=== PATIENT | male | born 1965 | race Two or more races ===

== ENCOUNTER 2024-03-30 13:34 | Outpatient (RCR) | payer OTHER, MEDICAID, SELFPAY ==
--- NOTE | 2024-03-30 14:33 | CTCFLWUP_ITS ---
[facility] [address] [place], [place] [address] FOLLOW-UP NOTE Date: 03/30/2024 MR#: [id number] Name: KAVON DOMINGUEZ : 1965 Dx: C20 Malignant neoplasm of rectum Stage IIIa ([id number]) rectal CA with per rectal lymphadenopathy neoadjuvant FOLFIRI followed by chemor adiation completed 02/15/2021. Status post laparoscopic APR resection with colostomy bag permanent residual 1.5 1.3 x 0.3 cm ypT2N0. Additional 3 months of modified FOLFOX 6 in adjuvant setting 05/27/2021 through 08/26/2021. 11/02/2023 labs CEA 3.3 10/28/2023 CT chest abdomen pelvis no interval met disease. Having intermittent pelvic pain likely related to prior surgeries needing occasional hydrocodone 5 ta jason only 1 or 2 a day max.. 120 tabs renewed. Cures website checked side effects discussed. Patient will be seeing his new medical oncologist Dr. Cerna next month. I will be seeing him in 3 months regarding his pain management. Electronically signed by: Enzo Carlisle M.D. 03/30/2024 2:30 PM
== END 2024-04-26 23:59 | disposition home or self-care (01) ==
LOC: SCTC 13:34
PROVIDERS: PCP Internal Medicine; Referring Provider Internal Medicine; Visit Provider Radiology Therapeutic Radiology
DX: C20 Malignant neoplasm of rectum (principal); Z92.21 Personal history of antineoplastic chemotherapy; Z92.3 Personal history of irradiation; Z93.3 Colostomy status
CPT/HCPCS: 99213; G0463

== ENCOUNTER 2024-05-05 10:01 | Outpatient (RCR) | payer OTHER, MEDICAID, SELFPAY ==
[2024-05-04 16:13] LABS: Basophils % (Auto) 1 % (0-2.5); Eosinophils # (Auto) 0.2 Thou/mm3 (0.0-0.5); Eosinophils % (Auto) 3 % (0-10); Hematocrit 34.4 % (41.0-53.0); Hemoglobin 12.4 g/dL (13.5-16.0); Immature Granulocytes % (Auto) 0 % (0-0); Immature Granulocytes Auto 0.02 Thou/mm3 (0.00-0.00); Lymphocytes # (Auto) 1.2 Thou/mm3 (1.0-4.8); Lymphocytes % (Auto) 15 % (10-50); Mean Corpuscular Hemoglobin 29.1 pg (25.0-35.0); Mean Corpuscular Volume 81 fL (80-100); Monocytes # (Auto) 0.8 Thou/mm3 (0.0-0.8); Monocytes % (Auto) 10 % (0-12); Neutrophils # (Auto) 5.6 Thou/mm3 (1.8-7.7); Neutrophils % (Auto) 71 % (37-80); Nucleated Red Blood Cell % 0 /100 WBC (0); Platelet Count 275 Thou/mm3 (140-440); RDW Standard Deviation 37.2 fL (35.1-43.9); Red Blood Count 4.26 Miln/mm3 (4.50-5.90)
[2024-05-04 16:37] LABS: Alanine Aminotransferase 34 U/L (10-49); Albumin, Serum 4.8 gm/dL (3.5-5.0); Albumin/Globulin Ratio 1.8 (1.2-2.2); Alkaline Phosphatase 87 U/L (46-116); Anion Gap 11 (7-16); Aspartate Amino Transferase 27 U/L (0-34); BUN/Creatinine Ratio 15 Ratio (12-20); Bilirubin,Total 0.6 mg/dL (0.3-1.2); Blood Urea Nitrogen 18 mg/dL (9-23); Calcium 9.4 mg/dL (8.3-10.6); Calcium (Corrected) 9.4 mg/dL (8.5-10.1); Carbon Dioxide 25.4 mMol/L (20.0-31.0); Chloride 102 mMol/L (98-107); Creatinine (Component) 1.2 mg/dL (0.6-1.3); Globulin 2.6 gm/dL (2.3-3.5); Glucose 148 mg/dL (74-106); Osmolality,Calculated 280 (275-295); Potassium 3.4 mMol/L (3.4-5.1); Sodium 138 mMol/L (136-145); Total Protein 7.4 gm/dL (5.7-8.2); eGFR > 60 See Note
[2024-05-04 16:39] LABS: Carcinoembryonic Antigen 3.2 ng/mL (0.0-5.0)
--- NOTE | 2024-05-08 20:00 | CTCFLWUP_ITS ---
Patient: LIVAN DOMINGUEZ : 1965 Page 9 of 10 FOLLOW UP NOTE DATE OF SERVICE: 05/05/2024 NAME: LIVAN DOMINGUEZ ACCOUNT: [id number] : 1965 AGE: 58 INTERVAL HISTORY: ONCOLOGY HISTORY: DIAGNOSIS: Malignant neoplasm of rectum [ICD10] C20 DATE OF DIAGNOSIS: Probably stage IIIa (T2, N 1, M0) well-differentiated rectal adenocarcinoma with perirectal lymphad enopathy. S/p biopsy on 07/04/2020. Neoadjuvant FOLFIRI followed by chemoradiation completed on 02/15/2021. S/p laparoscopic abdominoperineal resection with colostomy bag placement?residual 1.5 x 1.3 x 0.3 cm (YPT2N0) moderately differentiated adenocarcinoma was noted. Status post 3 months of modified FOLFOX 6 in the adjuvant setting (05/27/2021 - 08/26/2021) STAGE/TNM: Probably stage IIIa (T2, N 1, M0) well-differentiated rectal adenocarcinoma with perirectal lymph adenopathy TREATMENT HISTORY: Care?Plan Start?Date Cycle Day Intent modified?FOLFOXIRI?philomena?rectal?FRANCO?1 10/02/2020 1 14 Curative?(primary) modified?FOLFOX6?SHE?rectal?FRANCO?3 05/27/2021 1 14 Curative?(adjuvant) VENOfer?200mg?IV?wkly?for?10?weeks 05/27/2021 1 70 Palliative HISTORY OF PRESENT ILLNESS: Livan Dominguez is a 58-year-old ENG speaking male with history of diabetes and hypertension booth s been having intermittent rectal bleeding since January 2020. 07/02/2020: Patient was seen in the emergency room because of worsening rectal bleeding and was admitte d to the hospital. 07/04/2020: Patient had colonoscopy done by Dr. Soto. 07/02/2020: CT scan of the abdomen and pelvis with IV contrast? 08/01/2020: CT scan of the chest with IV contrast? 08/15/2020: MRI of the pelvis with and without contrast? 09/07/2020: Echocardiogram? 09/18/2020: Patient was seen by Dr. Alvaro Encarnacion of [facility]. 10/02/2020?12/12/2020: Patient had 6 cycles of FOLFIRINOX chemotherapy. 01/14/2021?02/15/2021: Patient had chemoradiation with capecitabine. 02/21/2021: Patient has seen colorectal surgeon Dr. Alvaro Encarnacion at [facility]. 04/03/2021: Mr. Dominguez had laparoscopic abdominal perineal resection with umbilical hernia repair. 05/27/2021 - 08/26/2021: Patient received 3 months of modified FOLFOX 6 (6 doses) in the adjuvant settin g. 08/23/2021: CEA 3.3. 10/23/2021: CT scan of the chest abdomen and pelvis with IV contrast? 01/15/2022: CEA 2.6. 02/14/2022: PET/CT scan 11/17/2023: CT scan of the chest abdomen pelvis with IV contrast 11/12/2023: CEA 3.3. OTHER MEDICAL HISTORY/CONDITIONS: FAMILY HISTORY: SOCIAL HISTORY: MEDICATIONS: 1. amlodipine - 10 mg 1 tab Daily 2. Farxiga - 5 mg 1 tab Daily 3. Flomax - 0.5 mg Daily 4. hydrocodone-acetaminophen - 5-325 mg 1 tab q6 5. Lantus Solostar - 100 unit/mL (3 mL) 22 Unit Daily 6. lisinopril - 40 mg 1 tab Daily 7. metFORMIN - 1,000 mg 1 tab Daily 8. metoprolol succinate - 25 mg 1 tab Daily 9. Vascepa - 1 gram 2 Capsule Twice a Day Medications Last Reconciled by Dorothea De La Cruz MA on 05/05/2024 ALLERGIES: No Known Drug Allergies REVIEW OF SYSTEMS: A complete 14-point review of systems was performed and is negative except as noted in interval histo ry. PHYSICAL EXAMINATION: VITAL SIGNS: B/P?191/98, Oxygen?Saturation?97% Weight?250?lbs (Change?since?05/04/24:?2.4?lbs) PAIN: 0 - No pain ECOG Performance Status: 0 - Asymptomatic and fully active GENERAL APPEARANCE: Appears well, in no apparent distress, appropriately interactive. HEENT: Normocephalic, no temporal wasting, normal conjunctiva, no scleral icterus, normal hearing, li ps without lesions, neck normal range of motion. CARDIOVASCULAR: Not assessed. PULMONARY: Normal respiratory effort, no respiratory distress or use of accessory muscles, speaking i n full sentences, no tachypnea. EXTREMITIES: No pedal edema or cyanosis. SKIN: Normal skin appearance. NEUROLOGIC: Alert and oriented x4. PSHYCHIATRIC: Appropriate affect, mood normal, behavior normal, intact thought and speech. LABORATORY DATA: I have personally reviewed and interpreted each of the patient?s relevant lab tests, abnormal finding s are below: Date 05/04/24 ??WHITE?BLOOD?COUNT?(Thou/mm3) 8.0 ??RED?BLOOD?COUNT?(Miln/mm3) 4.26?L ??HEMOGLOBIN?(gm/dl) 12.4?L ??HEMATOCRIT?(%) 34.4?L ??PLATELET?COUNT?(Thou/mm3) 275 ??NEUTROPHILS?%,?AUTO?(%) 71 ??LYMPH?%,?AUTO?(%) 15 ??NEUTROPHILS,?AUTO?(Thou/mm3) 5.6 ASSESSMENT/PLAN: 1. Probably stage IIIa (T2, N 1, M0) well-differentiated rectal adenocarcinoma with perirectal lympha denopathy. S/p biopsy on 07/04/2020. The patient has seen colorectal surgeon Alvaro Encarnacion on 02/21/2021 who is planning on doing surgery o n April 03, 2021. S/p laparoscopic abdominoperineal resection on 04/03/2021. Surgical pathology specimen showed a resid ual 1.5 cm tumor (YPT2N0). S/p 3 months of adjuvant modified FOLFOX 6 completed on 08/26/2021. Mr. Dominguez has completed chemoradiation on 02/15/2021 with capecitabine. Mr. Dominguez completed 6 cycles of neoadjuvant FOLF[address]. CT scan of the chest abdomen pelvis done on 11/17/2023 is negative for recurrence. CEA is 3.3. No clinical or radiographic evidence of recurrence of his rectal cancer. I will see him back in clinic in 6 months with CBC, CMP as well as CEA done prior to the visit. ORDERS: Cbc,cmp,cea RETURN TO CLINIC: 6 months BILLING AND COMPLIANCE: I reviewed external records from providers outside my specialty as summarized above. I spent a total of 50 minutes on this patient?s care on the day of their visit excluding time spent related to any bi lled procedures. This time includes time spent with the patient as well as time spent documenting in the medical record, reviewing patients records and tests, obtaining history, placing orders, communi cating with other healthcare professionals, counseling the patient, family or caregiver, and/or care coordination for the diagnoses above. Electronically Signed by: {Object.Sanct_ID*[email or web address]@M}, {Object.Sanct_ID*PnP.Suffix@U} D: {Object.Sanct_Date} T: {Object.Sanct_Time} CC: Enzo?Maylin,? PCP: Daquan Da Silva Referring: Daquan Da Silva This document was completed utilizing speech recognition software. Grammatical errors, random word in sertions, pronoun errors, and incomplete sentences are an occasional consequence of this system due t o software limitations, ambient noise, and hardware issues. Any formal questions or concerns about th e content, text or information contained within the body of this dictation should be directly address ed to the provider for clarification.
== END 2024-05-27 23:59 | disposition home or self-care (01) ==
LOC: SCTC 10:01
PROVIDERS: PCP Internal Medicine; Referring Provider Internal Medicine; Visit Provider Internal Medicine Hematology & Oncology
DX: Z08 Encounter for follow-up examination after completed treatment for malignant neoplasm (principal); Z85.038 Personal history of other malignant neoplasm of large intestine; Z92.3 Personal history of irradiation; Z92.21 Personal history of antineoplastic chemotherapy; Z90.49 Acquired absence of other specified parts of digestive tract
CPT/HCPCS: 36591; 80053; 82378; 85025; 99212; J1642; G0463

== ENCOUNTER → 2024-07-07 | Outpatient (CLI) | payer OTHER, MEDICAID, SELFPAY ==
[2024-07-07 11:00] LABS: Basophils % (Auto) 1 % (0-2.5); Eosinophils # (Auto) 0.3 Thou/mm3 (0.0-0.5); Eosinophils % (Auto) 4 % (0-10); Hematocrit 35.9 % (41.0-53.0); Hemoglobin 12.3 g/dL (13.5-16.0); Immature Granulocytes % (Auto) 0 % (0-0); Immature Granulocytes Auto 0.02 Thou/mm3 (0.00-0.00); Lymphocytes % (Auto) 16 % (10-50); Mean Corpuscular HGB Conc 34.3 g/dl (31.0-37.0); Mean Corpuscular Volume 85 fL (80-100); Monocytes # (Auto) 0.7 Thou/mm3 (0.0-0.8); Monocytes % (Auto) 11 % (0-12); Neutrophils # (Auto) 4.4 Thou/mm3 (1.8-7.7); Neutrophils % (Auto) 68 % (37-80); Nucleated Red Blood Cell % 0 /100 WBC (0); Platelet Count 267 Thou/mm3 (140-440); RDW Standard Deviation 40.5 fL (35.1-43.9); Red Blood Count 4.24 Miln/mm3 (4.50-5.90); White Blood Count 6.5 Thou/mm3 (3.8-10.6)
[2024-07-07 11:33] LABS: Alanine Aminotransferase 27 U/L (10-49); Albumin, Serum 4.1 gm/dL (3.5-5.0); Albumin/Globulin Ratio 1.6 (1.2-2.2); Alkaline Phosphatase 83 U/L (46-116); Anion Gap 10 (7-16); Aspartate Amino Transferase 26 U/L (0-34); BUN/Creatinine Ratio 17 Ratio (12-20); Bilirubin,Total 0.9 mg/dL (0.3-1.2); Blood Urea Nitrogen 24 mg/dL (9-23); Calcium 10.3 mg/dL (8.3-10.6); Calcium (Corrected) 10.3 mg/dL (8.5-10.1); Carbon Dioxide 26.8 mMol/L (20.0-31.0); Chloride 102 mMol/L (98-107); Creatinine (Component) 1.4 mg/dL (0.6-1.3); Globulin 2.5 gm/dL (2.3-3.5); Glucose 204 mg/dL (74-106); Osmolality,Calculated 287 (275-295); Potassium 4.2 mMol/L (3.4-5.1); Sodium 139 mMol/L (136-145); Total Protein 6.6 gm/dL (5.7-8.2); eGFR 58 See Note
[2024-07-07 15:30] LABS: Carcinoembryonic Antigen 2.9 ng/mL (0.0-5.0)
== END | disposition home or self-care (01) ==
LOC: SCTO 09:11
PROVIDERS: PCP Internal Medicine; Referring Provider Internal Medicine Hematology & Oncology; Visit Provider Internal Medicine Hematology & Oncology
DX: C20 Malignant neoplasm of rectum (principal)
CPT/HCPCS: 36415; 80053; 82378; 85025

== ENCOUNTER → 2024-07-08 | Outpatient (CLI) | payer OTHER, MEDICAID, SELFPAY ==
--- NOTE | 2024-07-08 15:00 | XR_ITS ---
Examination: CT chest with intravenous contrast CT abdomen with intravenous contrast CT pelvis with intravenous contrast 2-D coronal and sagittal reconstructions Time of exam: July 08, 2024 at [address] chest abdomen pelvis November 17, 2023, CT abdomen pelvis July 02, 2022, PET/CT scan February 14, 2022 Indications: Diagnosis malignant neoplasm rectum post surgery and colostomy, restaging CTDI: vol (mGy) : 25 DLP: (mGycm): 1294 Technique: Multiple axial images of the chest, abdomen and pelvis with intravenous contrast, 3.0 mm slice thickness. Images obtained post intravenous injection Isovue 370 60 cc. 2-D sagittal and coronal reconstructions. Low dose protocols were performed. One or more of the following dose reduction techniques were used; automated exposure control, adjustment of the mA and/or KV according to patient size, use of iterative reconstruction technique. Findings: No thoracic aortic aneurysm dilatation No pulmonary artery filling defects. No paratracheal tracheobronchial or bronchopulmonary adenopathy. No pneumonia, pulmonary edema, pleural disease or pulmonary nodules No liver or splenic lesions No gallstones Left colostomy Normal appendix Aorta normal size No interval abdominal or pelvic lymphadenopathy Stable presacral density compared with November 17, 2023 Urinary bladder intact Small fat-containing inguinal hernias Moderate osteopenia Impression: No interval metastatic disease
== END | disposition home or self-care (01) ==
LOC: CCTX 14:38
PROVIDERS: PCP Family Medicine; Referring Provider Internal Medicine Hematology & Oncology; Visit Provider Internal Medicine Hematology & Oncology
DX: C20 Malignant neoplasm of rectum (principal)
CPT/HCPCS: 71260; 74177; A4649; Q9967

== ENCOUNTER 2024-07-20 14:07 | Outpatient (RCR) | payer OTHER, MEDICAID, SELFPAY ==
--- NOTE | 2024-07-20 14:56 | CTCFLWUP_ITS ---
Patient: LIVAN DOMINGUEZ : 1965 Page 2 of 2 FOLLOW UP NOTE DATE OF SERVICE: 07/20/2024 NAME: LIVAN DOMINGUEZ ACCOUNT: [id number] : 1965 AGE: 59 INTERVAL HISTORY: No new complains ONCOLOGY HISTORY:?[facility] Oncology Hx? DIAGNOSIS: Malignant neoplasm of rectum [ICD10] C20 DATE OF DIAGNOSIS: Probably stage IIIa (T2, N 1, M0) well-differentiated rectal adenocarcinoma with perirectal lymphadenopathy. S/p biopsy on 07/04/2020. Neoadjuvant FOLFIRI followed by chemoradiation completed on 02/15/2021. S/p laparoscopic abdominoperineal resection with colostomy bag placement?residual 1.5 x 1.3 x 0.3 cm (YPT2N0) moderately differentiated adenocarcinoma was noted. Status post 3 months of modified FOLFOX 6 in the adjuvant setting (05/27/2021 - 08/26/2021) STAGE/TNM: Probably stage IIIa (T2, N 1, M0) well-differentiated rectal adenocarcinoma with perirectal lymphadenopathy TREATMENT HISTORY: Care?Plan Start?Date Cycle Day Intent modified?FOLFOXIRI?philomena?rectal?FRANCO?1 10/02/2020 1 14 Curative?(primary) modified?FOLFOX6?SHE?rectal?FRANCO?3 05/27/2021 1 14 Curative?(adjuvant) VENOfer?200mg?IV?wkly?for?10?weeks 05/27/2021 1 70 Palliative HISTORY OF PRESENT ILLNESS: Livan Dominguez is a 59-year-old ENG speaking male with history of diabetes and hypertension has been having intermittent rectal bleeding since January 2020. 07/02/2020: Patient was seen in the emergency room because of worsening rectal bleeding and was admitted to the hospital. 07/04/2020: Patient had colonoscopy done by Dr. Soto. 07/02/2020: CT scan of the abdomen and pelvis with IV contrast? 08/01/2020: CT scan of the chest with IV contrast? 08/15/2020: MRI of the pelvis with and without contrast? 09/07/2020: Echocardiogram? 09/18/2020: Patient was seen by Dr. Alvaro Encarnacion of [facility]. 10/02/2020?12/12/2020: Patient had 6 cycles of FOLFIRINOX chemotherapy. 01/14/2021?02/15/2021: Patient had chemoradiation with capecitabine. 02/21/2021: Patient has seen colorectal surgeon Dr. Alvaro Encarnacion at [facility]. 04/03/2021: Mr. Dominguez had laparoscopic abdominal perineal resection with umbilical hernia repair. 05/27/2021 - 08/26/2021: Patient received 3 months of modified FOLFOX 6 (6 doses) in the adjuvant setting. 08/23/2021: CEA 3.3. 10/23/2021: CT scan of the chest abdomen and pelvis with IV contrast? 01/15/2022: CEA 2.6. 02/14/2022: PET/CT scan 11/17/2023: CT scan of the chest abdomen pelvis with IV contrast 11/12/2023: CEA 3.3. OTHER MEDICAL HISTORY/CONDITIONS: FAMILY HISTORY: ?Clone Family Hx? SOCIAL HISTORY: MEDICATIONS: 1. amlodipine - 10 mg 1 tab Daily 2. Farxiga - 5 mg 1 tab Daily 3. Flomax - 0.5 mg Daily 4. hydrocodone-acetaminophen - 5-325 mg 1 tab q6 5. Lantus Solostar - 100 unit/mL (3 mL) 22 Unit Daily 6. lisinopril - 40 mg 1 tab Daily 7. metFORMIN - 1,000 mg 1 tab Daily 8. metoprolol succinate - 25 mg 1 tab Daily 9. Vascepa - 1 gram 2 Capsule Twice a Day?Palabra Meds? Medications Last Reconciled by Elba Yanez MA on 07/20/2024 ALLERGIES: No Known Drug Allergies REVIEW OF SYSTEMS: A complete 14-point review of systems was performed and is negative except as noted in interval history. PHYSICAL EXAMINATION:?CloneBlock PE? VITAL SIGNS: PAIN: 0 - No pain ECOG Performance Status: 0 - Asymptomatic and fully active GENERAL APPEARANCE: Appears well, in no apparent distress, appropriately interactive. HEENT: Normocephalic, no temporal wasting, normal conjunctiva, no scleral icterus, normal hearing, lips without lesions, neck normal range of motion. CARDIOVASCULAR: Not assessed. PULMONARY: Normal respiratory effort, no respiratory distress or use of accessory muscles, speaking in full sentences, no tachypnea. EXTREMITIES: No pedal edema or cyanosis. SKIN: Normal skin appearance. NEUROLOGIC: Alert and oriented x4. PSHYCHIATRIC: Appropriate affect, mood normal, behavior normal, intact thought and speech. LABORATORY DATA: I have personally reviewed and interpreted each of the patient?s relevant lab tests, abnormal findings are below: Date 05/04/24 07/07/24 ??WHITE?BLOOD?COUNT?(Thou/mm3) 8.0 6.5 ??RED?BLOOD?COUNT?(Miln/mm3) 4.26?L 4.24?L ??HEMOGLOBIN?(gm/dl) 12.4?L 12.3?L ??HEMATOCRIT?(%) 34.4?L 35.9?L ??PLATELET?COUNT?(Thou/mm3) 275 267 ??NEUTROPHILS?%,?AUTO?(%) 71 68 ??LYMPH?%,?AUTO?(%) 15 16 ??NEUTROPHILS,?AUTO?(Thou/mm3) 5.6 4.4 ??GLUCOSE,RANDOM?(mg/dL) ? 204?H ??BLOOD?UREA?NITROGEN?(mg/dL) ? 24?H ??CREATININE?(mg/dL) ? 1.40?H ??SODIUM?(mmol/L) ? 139 ??POTASSIUM?(mmol/L) ? 4.2 ??CHLORIDE?(mmol/L) ? 102 ??CrCl?(CandG)?(ml/min) ? 70.63 ??AST/SGOT?(Unit/L) ? 26 ??ALT/SGPT?(Unit/L) ? 27 ??ALKALINE?PHOSPHATASE?(Unit/L) ? 83 ??BILIRUBIN,?TOTAL?(mg/dL) ? 0.9 ??PROTEIN?TOTAL?(gm/dl) ? 6.6 ??ALBUMIN,?SERUM?(gm/dl) ? 4.1 ??GLOBULIN?(gm/dl) ? 2.5 ??ALBUMIN/GLOBULIN?RATIO ? 1.6 ??CALCIUM,?SERUM?(mg/dL) ? 10.3 ??CALCIUM?SERUM?(CORRECTED)?(mg/dL) ? 10.3?H ??CEA?(O*)?(ng/ml) ? 2.9 ASSESSMENT/PLAN:?Sander Cerna Assessment/Plan? 1. Probably stage IIIa (T2, N 1, M0) well-differentiated rectal adenocarcinoma with perirectal lymphadenopathy. S/p biopsy on 07/04/2020. The patient has seen colorectal surgeon Alvaro Encarnacion on 02/21/2021 who is planning on doing surgery on April 03, 2021. S/p laparoscopic abdominoperineal resection on 04/03/2021. Surgical pathology specimen showed a residual 1.5 cm tumor (YPT2N0). S/p 3 months of adjuvant modified FOLFOX 6 completed on 08/26/2021. Mr. Dominguez has completed chemoradiation on 02/15/2021 with capecitabine. Mr. Dominguez completed 6 cycles of neoadjuvant FOLFIR[address]OX. CT scan of the chest abdomen pelvis done on 06/2024 is negative for recurrence. CEA is 3.3. No clinical or radiographic evidence of recurrence of his rectal cancer. I will see him back in clinic in 9 months with CBC, CMP as well as CEA done prior to the visit. RETURN TO CLINIC: BILLING AND COMPLIANCE: I reviewed external records from providers outside my specialty as summarized above. I spent a total of 50 minutes on this patient?s care on the day of their visit excluding time spent related to any billed procedures. This time includes time spent with the patient as well as time spent documenting in the medical record, reviewing patients records and tests, obtaining history, placing orders, communicating with other healthcare professionals, counseling the patient, family or caregiver, and/or care coordination for the diagnoses above. Electronically Signed by: Kareem Cerna MD T: 2:54 PM CC: Dung? PCP: Daquan Da Silva Referring: Daquan Da Silva This document was completed utilizing speech recognition software. Grammatical errors, random word insertions, pronoun errors, and incomplete sentences are an occasional consequence of this system due to software limitations, ambient noise, and hardware issues. Any formal questions or concerns about the content, text or information contained within the body of this dictation should be directly addressed to the provider for clarification.
== END 2024-07-25 23:59 | disposition home or self-care (01) ==
LOC: SCTC 14:07
PROVIDERS: PCP Internal Medicine; Referring Provider Internal Medicine; Visit Provider Radiology Therapeutic Radiology
DX: Z08 Encounter for follow-up examination after completed treatment for malignant neoplasm (principal); Z85.048 Personal history of other malignant neoplasm of rectum, rectosigmoid junction, and anus; Z92.3 Personal history of irradiation; Z92.21 Personal history of antineoplastic chemotherapy
CPT/HCPCS: 99212; G0463

== ENCOUNTER 2024-07-27 08:15 | Outpatient (RCR) | payer OTHER, MEDICAID, SELFPAY ==
--- NOTE | 2024-07-27 08:34 | CTCFLWUP_ITS ---
[facility] [address] [place], [place] [address] FOLLOW-UP NOTE Date: 07/27/2024 MR#: [id number] Name: KAVON DOMINGUEZ : 1965 Dx: C20 Malignant neoplasm of rectum Identification. Patient with stage IIIa ([id number]) rectal CA with perirectal lymphadenopathy neoadjuvant FOLFIRI followed by chemoradiation completed 02/15/2021. Status post laparoscopic APR resection with colostomy bag permanent residual 1.5 x 1.3 x 0.3 cm ypT2N0. Additional 3 months of modified FOLFOX 6 in adjuvant setting 05/27/2021 through 08/26/2021. Most recent labs 07/07/2024 CEA remains low at 2.9. CT 07/08/2024 chest abdomen and pelvis no interval met disease. Having intermittent pelvic pain likely related to prior surgeries needing occasional hydrocodone 5 taking only 1 or 2 a day max. Patient scheduled for 3-year colonoscopy. Also being followed by Dr. Cerna. Doing well overall and I will see him again in 3 months for pain management. Electronically signed by: Enzo Carlisle M.D. 07/27/2024 8:32 AM
== END 2024-08-24 23:59 | disposition home or self-care (01) ==
LOC: SCTC 08:15
PROVIDERS: PCP Internal Medicine; Referring Provider Internal Medicine; Visit Provider Radiology Therapeutic Radiology
DX: C20 Malignant neoplasm of rectum (principal); Z93.3 Colostomy status; Z92.21 Personal history of antineoplastic chemotherapy; Z92.3 Personal history of irradiation; R10.2 Pelvic and perineal pain
CPT/HCPCS: 99212; G0463

== ENCOUNTER → 2024-07-27 | Outpatient (CLI) | payer OTHER, MEDICAID, SELFPAY ==
[2024-07-27 10:53] LABS: Carcinoembryonic Antigen 3.2 ng/mL (0.0-5.0)
== END | disposition home or self-care (01) ==
LOC: COPL 08:56
PROVIDERS: PCP Internal Medicine; Referring Provider Specialist; Visit Provider Specialist
DX: R10.32 Left lower quadrant pain (principal); R10.31 Right lower quadrant pain; R11.0 Nausea
CPT/HCPCS: 36415; 82378

== ENCOUNTER 2024-07-29 07:50 | Day surgery (SDC) | payer OTHER, MEDICAID, SELFPAY ==
[2024-07-28 13:44] VITALS: BMI 35.9
[2024-07-29] VITALS (10 sets, daily range): BP systolic 136–182; BP diastolic 86–126; PULSE 71–83; RESP 9–20; TEMP 36.2–36.7; O2SAT 94–99; BMI 35.7
[2024-07-29] MEDS: SODIUM CHLORIDE 0.9% 500 ML 500 ML 20 ML IV (08:25)
[2024-07-29] MEDS: DiphenhydrAMINE INJ 50 MG/ML VIAL 25 MG IV (09:17)
[2024-07-29] MEDS: fentaNYL CIT INJ 50 mCg/ML AMP 2ML (ASD USE ONLY) IV (09:19)
[2024-07-29] MEDS: MIDAZOLAM INJ 1 MG/ML VIAL 2 ML (ASD USE ONLY) 2 MG IV (09:22)
== END 2024-07-29 10:30 | disposition home or self-care (01) ==
PROVIDERS: PCP Family Medicine; Referring Provider Specialist; Visit Provider Specialist
PROC: 0DBE8ZX Excision of Large Intestine, Via Natural or Artificial Opening Endoscopic, Diagnostic (ICD-10-PCS; CPT 45380; principal; 2024-07-29 08:30)
DX: Z12.11 Encounter for screening for malignant neoplasm of colon (principal); Z85.048 Personal history of other malignant neoplasm of rectum, rectosigmoid junction, and anus; Z92.3 Personal history of irradiation; Z93.3 Colostomy status; E11.9 Type 2 diabetes mellitus without complications; N40.0 Benign prostatic hyperplasia without lower urinary tract symptoms; Z79.84 Long term (current) use of oral hypoglycemic drugs; Z79.899 Other long term (current) drug therapy
CPT/HCPCS: G0105; J1200; J2250; J3010; J7040

== ENCOUNTER → 2024-10-19 | Outpatient (CLI) | payer OTHER, MEDICAID, SELFPAY ==
[2024-10-19 10:24] LABS: Basophils # (Auto) 0.1 Thou/mm3 (0.0-0.2); Basophils % (Auto) 1 % (0-2.5); Eosinophils # (Auto) 0.3 Thou/mm3 (0.0-0.5); Eosinophils % (Auto) 5 % (0-10); Hematocrit 39.8 % (41.0-53.0); Hemoglobin 14.1 g/dL (13.5-16.0); Immature Granulocytes % (Auto) 0 % (0-0); Immature Granulocytes Auto 0.01 Thou/mm3 (0.00-0.00); Lymphocytes # (Auto) 0.9 Thou/mm3 (1.0-4.8); Lymphocytes % (Auto) 14 % (10-50); Mean Corpuscular HGB Conc 35.4 g/dl (31.0-37.0); Mean Corpuscular Volume 82 fL (80-100); Monocytes # (Auto) 0.7 Thou/mm3 (0.0-0.8); Monocytes % (Auto) 11 % (0-12); Neutrophils # (Auto) 4.5 Thou/mm3 (1.8-7.7); Neutrophils % (Auto) 69 % (37-80); Nucleated Red Blood Cell % 0 /100 WBC (0); Platelet Count 245 Thou/mm3 (140-440); RDW Standard Deviation 41.1 fL (35.1-43.9); Red Blood Count 4.86 Miln/mm3 (4.50-5.90); White Blood Count 6.5 Thou/mm3 (3.8-10.6)
[2024-10-19 10:36] LABS: Glucose Estimated Average 160 mg/dL (80-131); Hemoglobin A1C 7.2 % Hgb (4.8-6.0)
[2024-10-19 10:52] LABS: Alanine Aminotransferase 31 U/L (10-49); Albumin, Serum 4.3 gm/dL (3.5-5.0); Albumin/Globulin Ratio 1.7 (1.2-2.2); Alkaline Phosphatase 85 U/L (46-116); Anion Gap 8 (7-16); Aspartate Amino Transferase 27 U/L (0-34); BUN/Creatinine Ratio 10 Ratio (12-20); Bilirubin,Total 0.9 mg/dL (0.3-1.2); Blood Urea Nitrogen 15 mg/dL (9-23); Calcium 9.5 mg/dL (8.3-10.6); Calcium (Corrected) 9.5 mg/dL (8.5-10.1); Carbon Dioxide 28.3 mMol/L (20.0-31.0); Cardiac Risk Estimate 5.3 RATIO (4.0-6.7); Chloride 102 mMol/L (98-107); Cholesterol 347 mg/dL (132-200); Creatinine (Component) 1.5 mg/dL (0.6-1.3); Globulin 2.6 gm/dL (2.3-3.5); Glucose 211 mg/dL (74-106); HDL Cholesterol 66 mg/dL (40-60); LDL Cholesterol,Calculated 233 mg/dL (0-130); Osmolality,Calculated 282 (275-295); Potassium 4.3 mMol/L (3.4-5.1); Sodium 138 mMol/L (136-145); Thyroid Stimulating Hormone 2.33 uIU/mL (0.55-4.78); Total Protein 6.9 gm/dL (5.7-8.2); Triglycerides 240 mg/dL (30-150); eGFR 54 See Note
[2024-10-19 10:54] LABS: Creatinine MALB Rnd Ur 160 mg/dL (30-125); Microalbumin Creat Ratio 9 mg/gCrea (<30); Microalbumin, Random Urine 14 mg/L (0-300)
[2024-10-24 15:35] LABS: PSA, Free <0.10 ng/mL; PSA, Total <0.1 ng/mL (< OR = 4.0)
== END | disposition home or self-care (01) ==
LOC: COPL 09:45
PROVIDERS: PCP Student in an Organized Health Care Education/Training Program; Referring Provider Student in an Organized Health Care Education/Training Program; Visit Provider Student in an Organized Health Care Education/Training Program
DX: E11.65 Type 2 diabetes mellitus with hyperglycemia (principal); I10 Essential (primary) hypertension; E11.40 Type 2 diabetes mellitus with diabetic neuropathy, unspecified; E78.5 Hyperlipidemia, unspecified; Z12.5 Encounter for screening for malignant neoplasm of prostate
CPT/HCPCS: 36415; 80053; 80061; 82043; 82570; 83036; 84153; 84154; 84443; 85025

== ENCOUNTER 2024-11-16 08:50 | Outpatient (RCR) | payer OTHER, MEDICAID, SELFPAY ==
--- NOTE | 2024-11-16 09:48 | CTCFLWUP_ITS ---
[facility] [address] [place], [place] [address] FOLLOW-UP NOTE Date: 11/16/2024 MR#: [id number] Name: KAVON DOMINGUEZ : 1965 Dx: C20 Malignant neoplasm of rectum Identification. Patient with stage IIIa ([id number]) with perirectal lymphadenopathy neoadjuvant FOLFIRI followed by chemoradiation completed 02/15/2021. Status post laparoscopic APR resection with colostomy bag permanent residual 1.5 x 1.3 x 0.3 cm ypT2N0. Additional 3 months of modified FOLFOX 6 in adjuvant setting 05/27/2021 through 08/27/2021. Most recent labs 4-25 CEA remaining low at 3.[address] 07/08/2024 chest abdomen pelvis no interval met disease. Having intermittent pelvic pains since the surgery and needs occasional renewal of his hydrocodone 5 every 6 as needed tablets. [employer] website checked pain pills renewed. Patient sees Dr. Cerna medical oncologist in March. Electronically signed by: Enzo Carlisle M.D. 11/16/2024 9:46 AM
== END 2024-11-24 23:59 | disposition home or self-care (01) ==
LOC: SCTC 08:50
PROVIDERS: PCP Student in an Organized Health Care Education/Training Program; Referring Provider Student in an Organized Health Care Education/Training Program; Visit Provider Radiology Therapeutic Radiology
DX: C20 Malignant neoplasm of rectum (principal); Z93.3 Colostomy status; R10.2 Pelvic and perineal pain; Z92.3 Personal history of irradiation; Z92.21 Personal history of antineoplastic chemotherapy
CPT/HCPCS: 99213; G0463

== ENCOUNTER → 2024-12-23 | Outpatient (CLI) | payer OTHER, MEDICAID, SELFPAY ==
[2024-12-23 10:41] LABS: Basophils # (Auto) 0.1 Thou/mm3 (0.0-0.2); Basophils % (Auto) 1 % (0-2.5); Eosinophils # (Auto) 0.5 Thou/mm3 (0.0-0.5); Eosinophils % (Auto) 5 % (0-10); Hematocrit 35.8 % (41.0-53.0); Hemoglobin 12.5 g/dL (13.5-16.0); Immature Granulocytes Auto 0.07 Thou/mm3 (0.00-0.00); Lymphocytes # (Auto) 1.5 Thou/mm3 (1.0-4.8); Lymphocytes % (Auto) 17 % (10-50); Mean Corpuscular HGB Conc 34.9 g/dl (31.0-37.0); Mean Corpuscular Hemoglobin 29.0 pg (25.0-35.0); Mean Corpuscular Volume 83 fL (80-100); Monocytes # (Auto) 1.0 Thou/mm3 (0.0-0.8); Monocytes % (Auto) 11 % (0-12); Neutrophils # (Auto) 5.6 Thou/mm3 (1.8-7.7); Neutrophils % (Auto) 64 % (37-80); Nucleated Red Blood Cell # 0.00 Thou/mm3 (0.00-0.00); Nucleated Red Blood Cell % 0 /100 WBC (0); Platelet Count 333 Thou/mm3 (140-440); RDW Standard Deviation 39.8 fL (35.1-43.9); Red Blood Count 4.31 Miln/mm3 (4.50-5.90); White Blood Count 8.8 Thou/mm3 (3.8-10.6)
[2024-12-23 11:07] LABS: Alanine Aminotransferase 20 U/L (10-49); Albumin, Serum 4.1 gm/dL (3.5-5.0); Albumin/Globulin Ratio 1.9 (1.2-2.2); Alkaline Phosphatase 91 U/L (46-116); Anion Gap 11 (7-16); Aspartate Amino Transferase 19 U/L (0-34); BUN/Creatinine Ratio 17 Ratio (12-20); Bilirubin,Total 0.4 mg/dL (0.3-1.2); Blood Urea Nitrogen 31 mg/dL (9-23); Calcium 9.8 mg/dL (8.3-10.6); Calcium (Corrected) 9.8 mg/dL (8.5-10.1); Carbon Dioxide 24.1 mMol/L (20.0-31.0); Chloride 103 mMol/L (98-107); Creatinine (Component) 1.8 mg/dL (0.6-1.3); Globulin 2.2 gm/dL (2.3-3.5); Glucose 194 mg/dL (74-106); Osmolality,Calculated 287 (275-295); Potassium 4.5 mMol/L (3.4-5.1); Sodium 138 mMol/L (136-145); Total Protein 6.3 gm/dL (5.7-8.2); eGFR 43 See Note
== END | disposition home or self-care (01) ==
PROVIDERS: PCP Family Medicine; Referring Provider Internal Medicine Hematology & Oncology; Visit Provider Internal Medicine Hematology & Oncology
DX: C20 Malignant neoplasm of rectum (principal)
CPT/HCPCS: 36415; 80053; 85025

== ENCOUNTER → 2024-12-23 | Outpatient (CLI) | payer OTHER, MEDICAID, SELFPAY ==
--- NOTE | 2024-12-23 10:00 | XR_ITS ---
Examination: CT chest with intravenous contrast CT abdomen with intravenous contrast CT pelvis with intravenous contrast 2-D coronal and sagittal reconstructions Time of exam: December 23, 2024, 11:25 AM, comparison CT chest abdomen pelvis July 08, 2024, November 17, 2023, PET CT scan February 14, 2022 INDICATIONS: Diagnosis malignant neoplasm of the colon restaging CTDI: vol (mGy) : 25.8 DLP: (mGycm): 1347 Technique: Multiple axial images of the chest, abdomen and pelvis with intravenous contrast, 3.0 mm slice thickness. Images obtained post intravenous injection Isovue 30 cc Isovue-300 2-D sagittal and coronal reconstructions. Low dose protocols were performed. One or more of the following dose reduction techniques were used; automated exposure control, adjustment of the mA and/or KV according to patient size, use of iterative reconstruction technique. Findings: No thoracic degenerative aneurysm dilatation No pulmonary artery filling defects, contrast opacification pulmonary arteries reduced Trace pericardial effusion No paratracheal tracheobronchial or bronchopulmonary adenopathy No pneumonia, pulmonary edema, pleural disease or pulmonary nodules No liver splenic lesion No gallstones No pancreatic or adrenal mass 2 mm upper pole left renal calculus Mild renal parenchymal scar formation Left ileostomy No interval abdominal or pelvic lymphadenopathy Normal appendix No bowel obstruction Stable appearing scar formation in the rectal region Mild irregularity of the urinary bladder wall Small fat-containing inguinal hernias Significant osteopenia No interval osseous metastatic disease IMPRESSION: No interval recurrent tumor or metastatic disease
== END | disposition home or self-care (01) ==
LOC: CCTX 09:48
PROVIDERS: PCP Family Medicine; Referring Provider Internal Medicine Hematology & Oncology; Visit Provider Internal Medicine Hematology & Oncology
DX: C20 Malignant neoplasm of rectum (principal)
CPT/HCPCS: 71260; 74177; A4649; Q9967

== ENCOUNTER → 2025-01-30 | Outpatient (CLI) | payer OTHER, SELFPAY ==
[2025-01-30 11:04] LABS: Collection Type, Urine Clean Catch; Squamous Epithelial Cell,Urine 0 /hpf (0-5)
[2025-01-30 11:41] LABS: Basophils # (Auto) 0.1 Thou/mm3 (0.0-0.2); Basophils % (Auto) 1 % (0-2.5); Eosinophils # (Auto) 0.4 Thou/mm3 (0.0-0.5); Eosinophils % (Auto) 6 % (0-10); Hematocrit 33.2 % (41.0-53.0); Hemoglobin 11.5 g/dL (13.5-16.0); Immature Granulocytes Auto 0.05 Thou/mm3 (0.00-0.00); Lymphocytes # (Auto) 1.1 Thou/mm3 (1.0-4.8); Lymphocytes % (Auto) 15 % (10-50); Mean Corpuscular HGB Conc 34.6 g/dl (31.0-37.0); Mean Corpuscular Hemoglobin 29.6 pg (25.0-35.0); Mean Corpuscular Volume 86 fL (80-100); Monocytes # (Auto) 0.9 Thou/mm3 (0.0-0.8); Monocytes % (Auto) 12 % (0-12); Neutrophils # (Auto) 4.7 Thou/mm3 (1.8-7.7); Neutrophils % (Auto) 66 % (37-80); Nucleated Red Blood Cell # 0.00 Thou/mm3 (0.00-0.00); Nucleated Red Blood Cell % 0 /100 WBC (0); Platelet Count 264 Thou/mm3 (140-440); RDW Standard Deviation 41.3 fL (35.1-43.9); Red Blood Count 3.88 Miln/mm3 (4.50-5.90); White Blood Count 7.2 Thou/mm3 (3.8-10.6)
[2025-01-30 11:47] LABS: B-Type Natriuretic Peptide 124 pg/mL (0-100)
[2025-01-30 11:50] LABS: Alanine Aminotransferase 26 U/L (10-49); Albumin, Serum 4.1 gm/dL (3.5-5.0); Albumin/Globulin Ratio 1.5 (1.2-2.2); Alkaline Phosphatase 93 U/L (46-116); Anion Gap 9 (7-16); Aspartate Amino Transferase 26 U/L (0-34); BUN/Creatinine Ratio 11 Ratio (12-20); Bilirubin,Total 0.4 mg/dL (0.3-1.2); Blood Urea Nitrogen 19 mg/dL (9-23); Calcium 9.0 mg/dL (8.3-10.6); Calcium (Corrected) 9.0 mg/dL (8.5-10.1); Carbon Dioxide 25.3 mMol/L (20.0-31.0); Cardiac Risk Estimate 3.8 RATIO (4.0-6.7); Chloride 103 mMol/L (98-107); Cholesterol 263 mg/dL (132-200); Creatinine (Component) 1.8 mg/dL (0.6-1.3); Globulin 2.7 gm/dL (2.3-3.5); Glucose 178 mg/dL (74-106); HDL Cholesterol 70 mg/dL (40-60); LDL Cholesterol,Calculated 165 mg/dL (0-130); Osmolality,Calculated 280 (275-295); Potassium 4.2 mMol/L (3.4-5.1); Sodium 137 mMol/L (136-145); Thyroid Stimulating Hormone 2.75 uIU/mL (0.55-4.78); Total Protein 6.8 gm/dL (5.7-8.2); Triglycerides 142 mg/dL (30-150); eGFR 43 See Note
[2025-01-30 11:57] LABS: Bilirubin,Urine Negative (Negative); Blood,Urine 1+ (Negative); Clarity,Urine Clear (Clear/Hazy); Color,Urine Lt-Yellow (Lt Yel-Yel); Culture Indicated,Urine Not Indicated; Glucose, Urine 3+ (Negative); Ketones,Urine Negative (Negative); Leukocyte Esterase,Urine Negative (Negative); Nitrite,Urine Negative (Negative); PH,Urine 7.0 (5.0-7.0); Protein,Urine 3+ (Neg - Trace); RBC,Urine 3 /hpf (0-3); Specific Gravity,Urine 1.015 (1.001-1.035); Urobilinogen,Urine Negative mg/dL (0.0-1.0); WBC,Urine 2 /hpf (0-5)
[2025-01-30 12:03] LABS: Creatinine MALB Rnd Ur 73 mg/dL (30-125); Microalbumin Creat Ratio 521 mg/gCrea (<30); Microalbumin, Random Urine > 380 mg/L (0-300)
[2025-01-30 12:04] LABS: Glucose Estimated Average 174 mg/dL (80-131); Hemoglobin A1C 7.7 % Hgb (4.8-6.0)
== END | disposition home or self-care (01) ==
PROVIDERS: PCP Student in an Organized Health Care Education/Training Program; Referring Provider Student in an Organized Health Care Education/Training Program; Visit Provider Student in an Organized Health Care Education/Training Program
DX: E11.65 Type 2 diabetes mellitus with hyperglycemia (principal); E11.40 Type 2 diabetes mellitus with diabetic neuropathy, unspecified; I10 Essential (primary) hypertension; E78.5 Hyperlipidemia, unspecified
CPT/HCPCS: 36415; 80053; 80061; 81001; 82043; 82570; 83036; 83880; 84443; 85025

== ENCOUNTER 2025-02-16 09:02 | Outpatient (RCR) | payer OTHER, SELFPAY ==
--- NOTE | 2025-02-16 09:48 | CTCFLWUP_ITS ---
[facility] [address] [place], [place] [address] FOLLOW-UP NOTE Date: 02/16/2025 MR#: [id number] Name: KAVON DOMINGUEZ : 1965 Dx: C20 Malignant neoplasm of rectum Identification. Patient with stage IIIa ([id number]) colorectal CA with perirectal lymphadenopathy neoadjuvant 440 followed by chemoradiation completed 02/15/2021. Status post laparoscopy APR resection with colostomy bag permanent residual 1.5 x 1.3 x 0.3 cm ypT2N0. 04/23/2021 Additional 3 months of modified FOLFOX 6 in adjuvant setting 05/27/2021 through 08/27/2021. Most recent CEA 3.2 on 07/27/2024. CBC 01/30/2025 hemoglobin 11.5 slight drop from previous weeks. Most recent CT 12/23/2024 no interval tumor or mets disease. It is in today patient appears well ostomy functioning well. A#!. Stage IIIa colorectal CA neoadjuvant chemoradiation followed by postop chemo following APR resection with surgery performed 04/23/2021 at [facility]. A#2. No sign of recurrence clinically or on recent radiographs. A#3. Still having intermittent pain treatment related in abdominal pelvic region. Needing occasional hydrocodone 5 which helps him sleep. Only uses about 1 daily or every other day. #4 refilled the med and cures website checked. I will see him again in 3 months. Electronically signed by: Enzo Carlisle M.D. 02/16/2025 9:45 AM
== END 2025-02-24 23:59 | disposition home or self-care (01) ==
LOC: SCTC 09:02
PROVIDERS: PCP Family Medicine; Referring Provider Family Medicine; Visit Provider Radiology Therapeutic Radiology
DX: C19 Malignant neoplasm of rectosigmoid junction (principal); Z90.49 Acquired absence of other specified parts of digestive tract; Z93.3 Colostomy status; G89.3 Neoplasm related pain (acute) (chronic)
CPT/HCPCS: 99213; G0463

== ENCOUNTER 2025-03-28 11:11 | Outpatient (RCR) | payer OTHER, SELFPAY ==
[2025-03-27 16:42] LABS: Basophils # (Auto) 0.1 Thou/mm3 (0.0-0.2); Basophils % (Auto) 1 % (0-2.5); Eosinophils # (Auto) 0.3 Thou/mm3 (0.0-0.5); Eosinophils % (Auto) 4 % (0-10); Hematocrit 32.3 % (41.0-53.0); Hemoglobin 11.3 g/dL (13.5-16.0); Immature Granulocytes Auto 0.01 Thou/mm3 (0.00-0.00); Lymphocytes # (Auto) 0.9 Thou/mm3 (1.0-4.8); Lymphocytes % (Auto) 13 % (10-50); Mean Corpuscular HGB Conc 35.0 g/dl (31.0-37.0); Mean Corpuscular Hemoglobin 29.4 pg (25.0-35.0); Mean Corpuscular Volume 84 fL (80-100); Monocytes # (Auto) 0.8 Thou/mm3 (0.0-0.8); Monocytes % (Auto) 11 % (0-12); Neutrophils # (Auto) 5.1 Thou/mm3 (1.8-7.7); Neutrophils % (Auto) 71 % (37-80); Nucleated Red Blood Cell # 0.00 Thou/mm3 (0.00-0.00); Nucleated Red Blood Cell % 0 /100 WBC (0); Platelet Count 247 Thou/mm3 (140-440); RDW Standard Deviation 39.4 fL (35.1-43.9); Red Blood Count 3.85 Miln/mm3 (4.50-5.90); White Blood Count 7.2 Thou/mm3 (3.8-10.6)
[2025-03-27 17:22] LABS: Alanine Aminotransferase 20 U/L (10-49); Albumin, Serum 4.3 gm/dL (3.5-5.0); Albumin/Globulin Ratio 1.7 (1.2-2.2); Alkaline Phosphatase 79 U/L (46-116); Anion Gap 11 (7-16); Aspartate Amino Transferase 18 U/L (0-34); BUN/Creatinine Ratio 18 Ratio (12-20); Bilirubin,Total 0.6 mg/dL (0.3-1.2); Blood Urea Nitrogen 31 mg/dL (9-23); Calcium 9.7 mg/dL (8.3-10.6); Calcium (Corrected) 9.7 mg/dL (8.5-10.1); Carbon Dioxide 21.8 mMol/L (20.0-31.0); Chloride 105 mMol/L (98-107); Creatinine (Component) 1.7 mg/dL (0.6-1.3); Globulin 2.6 gm/dL (2.3-3.5); Glucose 182 mg/dL (74-106); Osmolality,Calculated 287 (275-295); Potassium 4.4 mMol/L (3.4-5.1); Sodium 138 mMol/L (136-145); Total Protein 6.9 gm/dL (5.7-8.2); eGFR 46 See Note
[2025-03-28 13:28] LABS: Carcinoembryonic Antigen 3.1 ng/mL (0.0-5.0)
--- NOTE | 2025-03-28 14:50 | CTCFLWUP_ITS ---
Patient: LIVAN DOMINGUEZ : 1965 Page 9 of 11 FOLLOW UP NOTE DATE OF SERVICE: 03/28/2025 NAME: LIVAN DOMINGUEZ ACCOUNT: [id number] : 1965 AGE: 59 INTERVAL HISTORY: No new complaints . weight is stable . no blood per rectum. ONCOLOGY HISTORY: DIAGNOSIS: Malignant neoplasm of rectum [ICD10] C20 DATE OF DIAGNOSIS: Probably stage IIIa (T2, N 1, M0) well-differentiated rectal adenocarcinoma with perirectal lymphadenopathy. S/p biopsy on 07/04/2020. Neoadjuvant FOLFIRI followed by chemoradiation completed on 02/15/2021. S/p laparoscopic abdominoperineal resection with colostomy bag placement?residual 1.5 x 1.3 x 0.3 cm (YPT2N0) moderately differentiated adenocarcinoma was noted. Status post 3 months of modified FOLFOX 6 in the adjuvant setting (05/27/2021 - 08/26/2021) STAGE/TNM: Probably stage IIIa (T2, N 1, M0) well-differentiated rectal adenocarcinoma with perirectal lymphadenopathy TREATMENT HISTORY: Care?Plan Start?Date Cycle Day Intent modified?FOLFOXIRI?philomena?rectal?FRANCO?1 10/02/2020 1 14 Curative?(primary) modified?FOLFOX6?SHE?rectal?FRANCO?3 05/27/2021 1 14 Curative?(adjuvant) VENOfer?200mg?IV?wkly?for?10?weeks 05/27/2021 1 70 Palliative HISTORY OF PRESENT ILLNESS: Livan Dominguez is a 59-year-old ENG speaking male with history of diabetes and hypertension has been having intermittent rectal bleeding since January 2020. 07/02/2020: Patient was seen in the emergency room because of worsening rectal bleeding and was admitted to the hospital. 07/04/2020: Patient had colonoscopy done by Dr. Soto. 07/02/2020: CT scan of the abdomen and pelvis with IV contrast? 08/01/2020: CT scan of the chest with IV contrast? 08/15/2020: MRI of the pelvis with and without contrast? 09/07/2020: Echocardiogram? 09/18/2020: Patient was seen by Dr. Alvaro Encarnacion of [facility]. 10/02/2020?12/12/2020: Patient had 6 cycles of FOLFIRINOX chemotherapy. 01/14/2021?02/15/2021: Patient had chemoradiation with capecitabine. 02/21/2021: Patient has seen colorectal surgeon Dr. Alvaro Encarnacion at [facility]. 04/03/2021: Mr. Dominguez had laparoscopic abdominal perineal resection with umbilical hernia repair. 05/27/2021 - 08/26/2021: Patient received 3 months of modified FOLFOX 6 (6 doses) in the adjuvant setting. 08/23/2021: CEA 3.3. 10/23/2021: CT scan of the chest abdomen and pelvis with IV contrast? 01/15/2022: CEA 2.6. 02/14/2022: PET/CT scan 11/17/2023: CT scan of the chest abdomen pelvis with IV contrast 11/12/2023: CEA 3.3. OTHER MEDICAL HISTORY/CONDITIONS: FAMILY HISTORY: SOCIAL HISTORY: MEDICATIONS: 1. amlodipine - 10 mg 1 tab Daily 2. Farxiga - 5 mg 1 tab Daily 3. Flomax - 0.5 mg Daily 4. hydrocodone-acetaminophen - 5-325 mg 1 tab q6 5. Lantus Solostar - 100 unit/mL (3 mL) 22 Unit Daily 6. lisinopril - 40 mg 1 tab Daily 7. metFORMIN - 1,000 mg 1 tab Daily 8. metoprolol succinate - 25 mg 1 tab Daily 9. Vascepa - 1 gram 2 Capsule Twice a Day Medications Last Reconciled by Dorothea Cox MD on 03/28/2025 ALLERGIES: No Known Drug Allergies REVIEW OF SYSTEMS: A complete 14-point review of systems was performed and is negative except as noted in interval history. PHYSICAL EXAMINATION: VITAL SIGNS: Temperature?97.2, B/P?174/85, Oxygen?Saturation?94% Weight?262?lbs (Change?since?03/27/25:?-4.6?lbs) PAIN: 0 - No pain ECOG Performance Status: 0 - Asymptomatic and fully active GENERAL APPEARANCE: Appears well, in no apparent distress, appropriately interactive. HEENT: Normocephalic, no temporal wasting, normal conjunctiva, no scleral icterus, normal hearing, lips without lesions, neck normal range of motion. CARDIOVASCULAR: Not assessed. PULMONARY: Normal respiratory effort, no respiratory distress or use of accessory muscles, speaking in full sentences, no tachypnea. EXTREMITIES: No pedal edema or cyanosis. SKIN: Normal skin appearance. NEUROLOGIC: Alert and oriented x4. PSHYCHIATRIC: Appropriate affect, mood normal, behavior normal, intact thought and speech. LABORATORY DATA: I have personally reviewed and interpreted each of the patient?s relevant lab tests, abnormal findings are below: Date 01/30/25 03/27/25 ??WHITE?BLOOD?COUNT?(Thou/mm3) 7.2 ? 7.2 ??RED?BLOOD?COUNT?(Miln/mm3) 3.88?L ? 3.85?L ??HEMOGLOBIN?(gm/dl) 11.5?L ? 11.3?L ??HEMATOCRIT?(%) 33.2?L ? 32.3?L ??PLATELET?COUNT?(Thou/mm3) 264 ? 247 ??NEUTROPHILS?%,?AUTO?(%) 66 ? 71 ??LYMPH?%,?AUTO?(%) 15 ? 13 ??NEUTROPHILS,?AUTO?(Thou/mm3) 4.7 ? 5.1 ??GLUCOSE,RANDOM?(mg/dL) ? 182?H ? ??BLOOD?UREA?NITROGEN?(mg/dL) ? 31?H ? ??CREATININE?(mg/dL) ? 1.70?H ? ??SODIUM?(mmol/L) ? 138 ? ??POTASSIUM?(mmol/L) ? 4.4 ? ??CHLORIDE?(mmol/L) ? 105 ? ??CrCl?(CandG)?(ml/min) ? 60.18 ? ??AST/SGOT?(Unit/L) ? 18 ? ??ALT/SGPT?(Unit/L) ? 20 ? ??ALKALINE?PHOSPHATASE?(Unit/L) ? 79 ? ??BILIRUBIN,?TOTAL?(mg/dL) ? 0.6 ? ??PROTEIN?TOTAL?(gm/dl) ? 6.9 ? ??ALBUMIN,?SERUM?(gm/dl) ? 4.3 ? ??GLOBULIN?(gm/dl) ? 2.6 ? ??ALBUMIN/GLOBULIN?RATIO ? 1.7 ? ??CALCIUM,?SERUM?(mg/dL) ? 9.7 ? ??CALCIUM?SERUM?(CORRECTED)?(mg/dL) ? 9.7 ? ??CEA?(O*)?(ng/ml) ? 3.1 ? ASSESSMENT/PLAN: 1. Probably stage IIIa (T2, N 1, M0) well-differentiated rectal adenocarcinoma with perirectal lymphadenopathy. S/p biopsy on 07/04/2020. The patient has seen colorectal surgeon Alvaro Encarnacion on 02/21/2021 who is planning on doing surgery on April 03, 2021. S/p laparoscopic abdominoperineal resection on 04/03/2021. Surgical pathology specimen showed a residual 1.5 cm tumor (YPT2N0). S/p 3 months of adjuvant modified FOLFOX 6 completed on 08/26/2021. Mr. Dominguez has completed chemoradiation on 02/15/2021 with capecitabine. Mr. Dominguez completed 6 cycles of neoadjuvant FOL[address] scan of the chest abdomen pelvis done on 11/2024 is negative for recurrence. CEA is 3.3. No clinical or radiographic evidence of recurrence of his rectal cancer. Naterra testing I will see him back in clinic in 6 months with CBC, CMP as well as CEA done prior to the visit. ORDERS: Order # Description [id number] CT Scan + Chest + Abdomen and Pelvis + With Contrast [id number] MD Follow Up 3 Months [id number] CEA + Comprehensive Metabolic Panel - 12 + CBC with Auto Diff RETURN TO CLINIC: I reviewed the diagnosis, prognosis, and recommended treatment/procedure options with the patient (and/or their legal automobile rental representative), including the potential benefits, risks, side effects and alternative therapies. We also discussed the option of no treatment and the possibility of clinical trial participation, if applicable. All questions were addressed, and they demonstrated understanding. They provided informed consent to proceed with the proposed plan of care. BILLING AND COMPLIANCE: I reviewed external records from providers outside my specialty as summarized above. I spent a total of 50 minutes on this patient?s care on the day of their visit excluding time spent related to any billed procedures. This time includes time spent with the patient as well as time spent documenting in the medical record, reviewing patients records and tests, obtaining history, placing orders, communicating with other healthcare professionals, counseling the patient, family or caregiver, and/or care coordination for the diagnoses above. Electronically Signed by: Kareem Cerna MD T: 2:48 PM CC: Enzo?Maylin? PCP: Leah Hanley Referring: Kareem Cerna This document was completed utilizing speech recognition software. Grammatical errors, random word insertions, pronoun errors, and incomplete sentences are an occasional consequence of this system due to software limitations, ambient noise, and hardware issues. Any formal questions or concerns about the content, text or information contained within the body of this dictation should be directly addressed to the provider for clarification.
== END 2025-04-26 23:59 | disposition home or self-care (01) ==
LOC: SCTC 11:11
PROVIDERS: PCP Family Medicine; Referring Provider Internal Medicine Hematology & Oncology; Visit Provider Internal Medicine Hematology & Oncology
DX: Z08 Encounter for follow-up examination after completed treatment for malignant neoplasm (principal); Z85.048 Personal history of other malignant neoplasm of rectum, rectosigmoid junction, and anus; Z92.3 Personal history of irradiation; Z92.21 Personal history of antineoplastic chemotherapy
CPT/HCPCS: 36591; 80053; 82378; 85025; 99212; A4216; J1642; G0463

== ENCOUNTER → 2025-04-17 | Outpatient (CLI) | payer OTHER, SELFPAY ==
[2025-04-17 14:35] LABS: Albumin, Serum 4.4 gm/dL (3.5-5.0); Anion Gap 10 (7-16); BUN/Creatinine Ratio 14 Ratio (12-20); Blood Urea Nitrogen 25 mg/dL (9-23); Calcium 9.1 mg/dL (8.3-10.6); Calcium (Corrected) 9.1 mg/dL (8.5-10.1); Carbon Dioxide 26.1 mMol/L (20.0-31.0); Chloride 103 mMol/L (98-107); Creatinine (Component) 1.8 mg/dL (0.6-1.3); Glucose 205 mg/dL (74-106); Osmolality,Calculated 287 (275-295); Phosphorous 3.1 mg/dL (2.4-5.1); Potassium 4.2 mMol/L (3.4-5.1); Sodium 139 mMol/L (136-145); eGFR 43 See Note
== END | disposition home or self-care (01) ==
LOC: COPL 13:41
PROVIDERS: PCP Student in an Organized Health Care Education/Training Program; Referring Provider Student in an Organized Health Care Education/Training Program; Visit Provider Student in an Organized Health Care Education/Training Program
DX: N18.32 Chronic kidney disease, stage 3b (principal)
CPT/HCPCS: 36415; 80069